=== PATIENT | male | born 1980 | race Caucasian/White ===

== ENCOUNTER → 2024-03-14 16:02 | Outpatient (CLI) | payer OTHER, SELFPAY ==
--- NOTE | 2024-03-14 16:06 | DI.RAD.S_ITS ---
PROCEDURE: XR ACUTE ABDOMEN SERIES INDICATIONS: Diarrhea, unspecified TECHNIQUE: One view chest and two views of the abdomen were acquired. COMPARISON: None. FINDINGS: Surgical changes and devices: None. Chest: Lungs are clear. Heart size is normal. No pleural effusions. No pneumoperitoneum. Abdomen: Bowel gas pattern is normal. No suspicious calcifications. Visualized solid organ contours appear normal. Bones: No suspicious bony lesions. IMPRESSION: No acute abnormality. Dictated by: Tomy Coleman M.D. on 03/14/2024 at 17:38 Approved by: Tomy Coleman M.D. on 03/14/2024 at 17:38
== END ==
PROVIDERS: PCP Registered Nurse; Referring Provider Registered Nurse; Visit Provider Registered Nurse
DX: R19.7 Diarrhea, unspecified (principal)
CPT/HCPCS: 74022